=== PATIENT | female | born 1925 | race Caucasian/White ===

== ENCOUNTER 2016-10-22 15:31 | Emergency (ER) | payer MEDICARE ==
[~2016-10-22] VITALS: Ht 162.6 cm; Wt 59.0 kg
[2016-10-22 15:31] VITALS: BP_SYST 131
--- NOTE | 2016-10-22 15:31 | NUR ---
Pt placed in room 5.
--- NOTE | 2016-10-22 15:32 | NUR ---
MD Osborne at bedside
--- NOTE | 2016-10-22 15:32 | NUR ---
Pt bib ALS coming from assisted living facility, more altered than usual, skin hot to touch. Pt is non verbal, placed on plater helper sinus tach at 101.
[2016-10-22] MEDS ORDERED: NS 500 ML IV SCH (15:35)
[2016-10-22 16:02] LABS: BASOPHILS % (AUTO) 0.4 % (0.0-2.0); HEMOGLOBIN 11.1 g/dL (12.0-16.0); LYMPHOCYTES # (AUTO) 0.5 K/uL (1.0-5.5); LYMPHOCYTES % (AUTO) 4.3 % (20.5-51.5); MEAN CORPUSCULAR HEMOGLOBIN 31 pg (27-31); MEAN CORPUSCULAR HGB CONC 33 % (32-36); MEAN CORPUSCULAR VOLUME 93 fL (79.0-98.0); MONOCYTES # (AUTO) 0.8 K/uL (0.0-1.0); MONOCYTES % (AUTO) 6.9 % (1.7-9.3); NEUTROPHILS # (AUTO) 9.8 K/uL (1.8-7.7); NEUTROPHILS % (AUTO) 88.4 % (40.0-70.0); PLATELET COUNT (AUTO) 258 K/uL (130-430); RED BLOOD CELL COUNT(AUTO) 3.65 MIL/uL (4.2-6.2); RED CELL DISTRIBUTION WIDTH 13.3 % (9.0-15.0); WHITE BLOOD COUNT (AUTO) 11.1 K/uL (4.8-10.8)
[2016-10-22 16:19] LABS: ANION GAP 7 (5-15); CALCIUM 8.2 mg/dL (8.4-11.0); CHLORIDE 93 mmol/L (98-107); CREATININE 0.86 mg/dL (0.55-1.30); GLUCOSE 181 mg/dL (70-99); POTASSIUM 4.4 mmol/L (3.5-5.1); SODIUM SERUM 128 mmol/L (136-145); UREA NITROGEN, BLOOD 14 mg/dL (8-21)
[2016-10-22 16:22] LABS: PROTHROMBIN TIME 10.4 SECS (9.5-12.5)
[2016-10-22 16:32] LABS: ALANINE AMINOTRANSFERASE 32 U/L (12-78); ALBUMIN 2.5 g/dL (3.4-4.8); ASPARTATE AMINOTRANSFERASE 36 U/L (10-37); SALICYLATE 1 mg/dL (3-30); TOTAL BILIRUBIN 0.3 mg/dL (0.0-1.0); TOTAL PROTEIN, SERUM 6.1 g/dL (6.4-8.3)
[2016-10-22 16:34] LABS: ACETAMINOPHEN < 1 ug/mL (1-30); ALCOHOL, BLOOD < 3 mg/dL (<10)
[2016-10-22] MEDS ORDERED: PIPERACILLIN/TAZO 3.38 GM in D5W 50 ML IV ONE (16:45)
[2016-10-22 17:21] LABS: BILIRUBIN,URINE NEGATIVE (NEGATIVE); BLOOD, URINE 2+ (NEGATIVE); CLARITY/URINE CLOUDY (CLEAR); COLOR,URINE YELLOW (YELLOW); GLUCOSE,URINE NEGATIVE (NEGATIVE); KETONES,URINE NEGATIVE (NEGATIVE); LEUKOCYTE ESTERASE ,URINE 3+ (NEGATIVE); NITRITE, URINE POSITIVE (NEGATIVE); PH,URINE 6.5 (5.0-8.0); PROTEIN URINE 2+ (NEGATIVE); UROBILINOGEN,URINE 0.2 (0.2-1.0)
--- NOTE | 2016-10-22 17:28 | NUR ---
# 16 FR Rowell catheter with use of sterile technique. Immediate return of 200 cc urine noted. Bedside drainage bag placed below level of bladder. Urine sample collected and sent to lab. Pt tolerated procedure well. Patient arrived with diaper on, incontinent of urine and stool. Skin care given Patient unable to toilet self.
[2016-10-22] MEDS ORDERED: NACL 0.9% 1,000 ML IV ONE (17:30)
[2016-10-22] MEDS ORDERED: ZINC220T (17:33)
[2016-10-22] MEDS ORDERED: ASPI-524 (17:33)
[2016-10-22] MEDS ORDERED: [UNRECOGNIZED DRUG - CODE] (17:33)
[2016-10-22] MEDS ORDERED: SIMV10TA6 (17:33)
[2016-10-22] MEDS ORDERED: ACETAMINOPHEN 325 MG TABLET PO ONE (18:00)
[2016-10-22] MEDS ORDERED: PIPERACILLIN/TAZOBACTAM 3.375 GM/VIAL (ZOSYN) IV ONE (18:07)
[2016-10-22 18:11] LABS: BACTERIA,URINE MANY /HPF (None Seen); MUCUS,URINE None Seen /LPF (None Seen); WBC,URINE >100 /HPF (0-3)
--- NOTE | 2016-10-22 19:00 | NUR ---
No adverse effects to medications noted. Will continue to monitor pt.
--- NOTE | 2016-10-22 19:00 | NUR ---
Pt stable, no signs of distress noted. Addendum: 10/22/16 at 1939 by FRAN Will continue to monitor pt.
--- NOTE | 2016-10-22 19:37 | NUR ---
Report called in to JEREMY Lockhart at [facility]. Phone number . Admitting physician Dr. Dasha Savage. ALS ambulance to arrive at ETA 2024.
--- NOTE | 2016-10-22 19:40 | NUR ---
Patient to be transferred to [facility]. Is being transferred due to higher level of care. Receiving facility has accepting physician and available space. ER physician has signed transfer form. Patient unable to sign form. Patient belongings inventoried and will be sent with patient. Copy of nursing notes, lab reports, EKG, Physicians Orders and X-rays to be sent with patient. Report called to JEREMY Lockhart at receiving facility. Receiving physician is Dr. Savage. [facility] ambulance has been called for transfer. ETA 40 minutes.
[2016-10-22 20:18] VITALS: BP_SYST 122
== END 2016-10-22 20:18 | disposition short-term general hospital (02) ==
LOC: SED 15:31
DX: R40.4 Transient alteration of awareness (principal); N39.0 Urinary tract infection, site not specified; F03.90 Unspecified dementia, unspecified severity, without behavioral disturbance, psychotic disturbance, mood disturbance, and anxiety
CPT/HCPCS: 36415; 51702; 70450; 71010; 80053; 81000; 81025; 83605; 84484; 85025; 85610; 85730; 87040; 87086; 87186; 93005; 96361; 96365; 99285; G0480; G0481; G0482; J2543; J7030; J7040